=== PATIENT | female | born 1940 | race Hispanic/Latino ===

== ENCOUNTER → 2017-12-13 | Outpatient (CLI) | payer MEDICARE ==
[~2017-12-13] MED LIST: ASPI-555 PO; CLOP75TA14 PO; LISI-617 PO; METO50TA18 PO; NAPR-1023 PO; PRAV80TA21 PO
== END | disposition home or self-care (01) ==
LOC: SHCH 10:45
PROVIDERS: ATTEND Internal Medicine Cardiovascular Disease
DX: I73.9 Peripheral vascular disease, unspecified (principal); R09.89 Other specified symptoms and signs involving the circulatory and respiratory systems
CPT/HCPCS: 93880; 93925

== ENCOUNTER → 2017-12-23 | Outpatient (CLI) | payer MEDICARE ==
[2017-12-23 09:43] LABS: CREATININE 1.3 mg/dL (0.5-1.5)
== END | disposition home or self-care (01) ==
LOC: LAB 08:44
PROVIDERS: ATTEND Internal Medicine Cardiovascular Disease
DX: I73.9 Peripheral vascular disease, unspecified (principal)
CPT/HCPCS: 36415; 82565; 84520

== ENCOUNTER → 2017-12-24 | Outpatient (CLI) | payer MEDICARE ==
[~2017-12-24] MED LIST changes: +IOPAMIDOL-370 100 ML VIAL IV ONE; +IOPAMIDOL-370 75 ML VIAL IV ONE
== END | disposition home or self-care (01) ==
LOC: OIH 15:32
PROVIDERS: ATTEND Internal Medicine Cardiovascular Disease
DX: I73.9 Peripheral vascular disease, unspecified (principal); J18.1 Lobar pneumonia, unspecified organism
CPT/HCPCS: 75635; Q9967 ×2

== ENCOUNTER → 2019-05-10 | Outpatient (CLI) | payer OTHER, MEDICARE ==
[~2019-05-10] MED LIST changes: +AEC81 PO; -ASPI-555 PO; +FURO20TA4 PO; +IBUP-2070 PO; -IOPAMIDOL-370 100 ML VIAL IV ONE; -IOPAMIDOL-370 75 ML VIAL IV ONE; +ISOS30TA6 PO; +LEVO500T2 PO; -NAPR-1023 PO
== END | disposition home or self-care (01) ==
LOC: SHCH 08:23
PROVIDERS: ATTEND Internal Medicine Cardiovascular Disease
DX: I08.0 Rheumatic disorders of both mitral and aortic valves (principal); I11.9 Hypertensive heart disease without heart failure; I65.23 Occlusion and stenosis of bilateral carotid arteries
CPT/HCPCS: 93306; 93880

== ENCOUNTER 2019-06-12 07:25 | Inpatient (IN) | payer OTHER, MEDICARE ==
[~2019-06-12] VITALS: Ht 154.9 cm; Wt 55.2 kg
[2019-06-12] MEDS ORDERED: SODIUM CHLORIDE 0.9% 1000ML 1,000 ML IV ONE ×2 (07:57→15:11)
[2019-06-12 08:24] LABS: BASOPHILS % (AUTO) 0.5 % (0.0-5.0); EOSINOPHILS % (AUTO) 0.4 % (0.0-8.0); HEMATOCRIT 36.1 % (36-48); MEAN CORPUSCULAR HEMOGLOBIN 28.1 pg (27.0-33.0); MEAN CORPUSCULAR HGB CONC 31.6 g/dL (32.0-36.0); MEAN CORPUSCULAR VOLUME 88.7 fL (79-99); MONOCYTES % (AUTO) 7.5 % (3.0-13.0); NEUTROPHILS % (AUTO) 80.6 % (40.0-77.0); PLATELET COUNT (AUTO) 285 K/uL (130-400); RED BLOOD CELL COUNT(AUTO) 4.07 MIL/uL (4.00-5.50); RED CELL DISTRIBUTION WIDTH 13.6 % (11.0-15.5); WHITE BLOOD COUNT (AUTO) 15.5 K/uL (4.8-10.8)
[2019-06-12 08:33] LABS: CREATININE 1.6 mg/dL (0.5-1.5); POTASSIUM 3.9 mmol/L (3.5-5.1)
[2019-06-12 08:38] LABS: ALBUMIN 3.8 g/dL (3.5-5.0); BILIRUBIN,TOTAL 0.5 mg/dL (0.2-1.0); TOTAL PROTEIN, SERUM 8.1 g/dL (6.0-8.3)
[2019-06-12] MEDS ORDERED: METRONIDAZOLE 500MG/100ML BAG 100 ML ONE (09:35)
[2019-06-12] MEDS ORDERED: ACETAMINOPHEN 325 MG TAB ONE ×2 (10:03→18:26)
[2019-06-12] MEDS ORDERED: DIPHENHYDRAMINE HCL 25 MG CAPSULE PO PRN (10:45)
[2019-06-12] MEDS ORDERED: ACETAMINOPHEN 325 MG TAB PO PRN (10:45)
[2019-06-12] MEDS ORDERED: MAG HYDROX/AL HYDROX/SIMETH ES 30 ML SUSP UDCUP PO PRN (10:45)
[2019-06-12] MEDS ORDERED: LACTULOSE 20 GM/30 ML UDCUP PO PRN (10:45)
[2019-06-12] MEDS ORDERED: NITROGLYCERIN 0.4 MG SL TAB SL PRN (10:45)
[2019-06-12] MEDS ORDERED: DiphenhydrAMINE HCL 50 MG/ML VIAL IV PRN (10:45)
[2019-06-12] MEDS ORDERED: ONDANSETRON HCL 4 MG/2 ML VIAL IV PRN (10:45)
[2019-06-12] MEDS ORDERED: POTASSIUM CHLORIDE 20MEQ/100ML 100 ML IV PRN (11:15)
[2019-06-12] MEDS ORDERED: POTASSIUM CHLORIDE 20 MEQ ERTAB PO PRN (11:15)
[2019-06-12] MEDS ORDERED: LIDOCAINE HCL-MPF 1% 2ML VIAL IVP PRN (11:15)
[2019-06-12] MEDS ORDERED: POTASSIUM CHLORIDE 10% ELIXIR 20 MEQ/15 ML UDCUP PO PRN (11:15)
[2019-06-12 13:06] LABS: HEMATOCRIT 31.8 % (36-48)
[2019-06-12] MEDS ORDERED: IPRATROPIUM/ALBUTEROL SULFATE 3 ML SOLUTION IH ONE (13:37)
--- NOTE | 2019-06-12 13:38 | NUR ---
LESS THAN HALF PACK/DAY Addendum: 06/12/19 at 1338 by LUIS GARCIA RT Amended: Links added.
[2019-06-12] MEDS: IPRATROPIUM/ALBUTEROL SULFATE 3 ML SOLUTION IH SCH ×2 (13:41→18:00)
[2019-06-12] MEDS ORDERED: CEFTRIAXONE SODIUM 1 GM ONE (18:16)
[2019-06-12 19:00] LABS: ALBUMIN 3.1 g/dL (3.5-5.0); BILIRUBIN,TOTAL 0.3 mg/dL (0.2-1.0); CREATININE 1.2 mg/dL (0.5-1.5); TOTAL PROTEIN, SERUM 7.2 g/dL (6.0-8.3)
[2019-06-12] MEDS: FAMOTIDINE/PF 20 MG/2 ML VIAL IV SCH (20:52)
[2019-06-12 21:00] VITALS: BP 113/58
--- NOTE | 2019-06-12 21:00 | NUR ---
Admitted from ER at 2036. Awake, alert, and oriented x 3. On room air. NS infusing at 100 mls/hr into patent right forearm IV. Oriented to room, bed controls, call light etc. Assisted to position of comfort. Call light and needed items placed readily at hand. Encouraged to call prn. Placed on Droplet Precautions due to cough.
[2019-06-12] MEDS: SODIUM CHLORIDE 0.9% 1000ML 1,000 ML IV SCH (21:20)
[2019-06-12] MEDS ORDERED: IPRATROPIUM 0.5 MG/2.5 ML INH IH ONE (22:06)
[2019-06-12] MEDS ORDERED: ACET-66 PO (22:29)
[2019-06-12] MEDS: CEFTRIAXONE SODIUM 1 GM IVP SCH ×2 (22:57→23:00)
--- NOTE | 2019-06-12 23:00 | NUR ---
Call placed to Hospitalist recreation attendant supervisor. Patient feels Duonebs make her heart race. Requested change to atrovent only. Spoke to Aleisha FUNES(hospitalist recreation attendant supervisor). Order received.
[2019-06-13] VITALS (8 sets, daily range): BP systolic 95–150; BP diastolic 48–73
[2019-06-13] MEDS: IPRATROPIUM 0.5 MG/2.5 ML INH IH SCH ×6 (01:43→21:49)
[2019-06-13 03:48] LABS: BASOPHILS % (AUTO) 0.6 % (0.0-5.0); EOSINOPHILS % (AUTO) 2.4 % (0.0-8.0); HEMATOCRIT 30.9 % (36-48); LYMPHOCYTES % (AUTO) 13.4 % (21.0-51.0); MEAN CORPUSCULAR HEMOGLOBIN 28.7 pg (27.0-33.0); MEAN CORPUSCULAR HGB CONC 32.5 g/dL (32.0-36.0); MEAN CORPUSCULAR VOLUME 88.6 fL (79-99); MONOCYTES % (AUTO) 10.7 % (3.0-13.0); NEUTROPHILS % (AUTO) 72.9 % (40.0-77.0); PLATELET COUNT (AUTO) 228 K/uL (130-400); RED BLOOD CELL COUNT(AUTO) 3.49 MIL/uL (4.00-5.50); RED CELL DISTRIBUTION WIDTH 13.8 % (11.0-15.5); WHITE BLOOD COUNT (AUTO) 10.3 K/uL (4.8-10.8)
[2019-06-13 04:01] LABS: ALBUMIN 2.8 g/dL (3.5-5.0); BILIRUBIN,TOTAL 0.2 mg/dL (0.2-1.0); POTASSIUM 3.9 mmol/L (3.5-5.1); TOTAL PROTEIN, SERUM 6.3 g/dL (6.0-8.3)
[2019-06-13] MEDS ORDERED: AZITHROMYCIN 250 MG TABLET PO SCH (08:00)
--- NOTE | 2019-06-13 08:15 | NUR ---
AM ASSESSMENT PT LAYING IN BED, WATCHING TV. DROPLET ISOLATIONS. SOB ON EXERTION. NO DISTRESS NOTED. O2 NC @ 2L. DENIES CHEST PAIN OR DISCOMFORT. DENIES PALPITATIONS. TELE: 80s. DENIES N/V AND/OR DIARRHEA. NO EPISODES OF DIARRHEA SINCE ADMISSION. 0.9% NACL INFUSING @ 75 ML/HR. UP W/ASSISTANCE. WALKER @ BEDSIDE. INSTRUCTED TO CALL FOR ASSISTANCE. CALL TORIN W/IN REACH.
[2019-06-13] MEDS ORDERED: ENOXAPARIN SODIUM 30 MG/0.3 ML SQ SCH (09:00)
[2019-06-13] MEDS: AZITHROMYCIN 250 MG TABLET PO SCH (09:06)
[2019-06-13] MEDS: BENZONATATE 100 MG CAPSULE PO PRN ×2 (09:06→20:48)
[2019-06-13] MEDS: CEFTRIAXONE SODIUM 1 GM IVP SCH ×2 (09:07→20:48)
[2019-06-13] MEDS: GUAIFENESIN-DM 200/20 MG 10 ML PO PRN ×2 (09:07→20:48)
[2019-06-13] MEDS: SODIUM CHLORIDE 0.9% 1000ML 1,000 ML IV SCH ×2 (09:12→19:33)
--- NOTE | 2019-06-13 16:38 | NUR ---
DC PLAN VISITED WITH PATIENT. PATIENT LIVES WITH SON. SEMI INDEPENDENT ABLE TO PERFORM ADL'S. PATIENT HAS WALKER, WHEEL CHAIR, SHOWER CHAIR. NACHO IS THE PROVIDER. FEELS SAFE TO RETURN HOME. Addendum: 06/13/19 at 1640 by ADRYAN MCCORMICK RN CM Amended: Links added.
[2019-06-13] MEDS: ACETYLCYSTEINE 10% 100MG/ML 4ML VIAL IH SCH ×2 (18:11→21:49)
[2019-06-13] MEDS: FAMOTIDINE/PF 20 MG/2 ML VIAL IV SCH (20:48)
--- NOTE | 2019-06-13 21:00 | NUR ---
Awake, alert, and oriented. Strong cough sounds productive, but not bringing up phlegm. Medicated with Robitussin DM and Tessalon perle. Comfort measures done. Droplet precautions Isolation in progress. Call light and needed items placed readily at hand. Encouraged to call prn.
[2019-06-14] MEDS: IPRATROPIUM 0.5 MG/2.5 ML INH IH SCH ×6 (01:28→22:30)
[2019-06-14] MEDS: ACETYLCYSTEINE 10% 100MG/ML 4ML VIAL IH SCH ×6 (01:28→22:30)
[2019-06-14] MEDS: SODIUM CHLORIDE 0.9% 1000ML 1,000 ML IV SCH (03:15)
[2019-06-14 03:33] VITALS: BP 141/63
[2019-06-14 04:17] LABS: HEMATOCRIT 29.3 % (36-48); MEAN CORPUSCULAR HEMOGLOBIN 28.8 pg (27.0-33.0); MEAN CORPUSCULAR HGB CONC 32.2 g/dL (32.0-36.0); MEAN CORPUSCULAR VOLUME 89.4 fL (79-99); PLATELET COUNT (AUTO) 227 K/uL (130-400); RED BLOOD CELL COUNT(AUTO) 3.28 MIL/uL (4.00-5.50); WHITE BLOOD COUNT (AUTO) 8.9 K/uL (4.8-10.8)
[2019-06-14 04:26] LABS: INR 1.05 (0.85-1.15); PARTIAL THROMBOPLASTIN TIME 32.2 SEC (26.3-35.5)
[2019-06-14 04:29] LABS: ALBUMIN 2.5 g/dL (3.5-5.0); BILIRUBIN,TOTAL 0.2 mg/dL (0.2-1.0); CREATININE 0.8 mg/dL (0.5-1.5)
[2019-06-14 07:00] VITALS: BP 148/65
[2019-06-14] MEDS: AZITHROMYCIN 250 MG TABLET PO SCH (09:56)
[2019-06-14] MEDS: METHYLPREDNISOLONE SOD SUCC 40MG/ML 1ML IVP SCH ×2 (09:56→18:04)
[2019-06-14] MEDS: CEFTRIAXONE SODIUM 1 GM IVP SCH ×2 (09:56→20:02)
[2019-06-14] MEDS: ACETAMINOPHEN 325 MG TAB PO PRN ×2 (09:57→23:36)
[2019-06-14 11:00] VITALS: BP 139/59
--- NOTE | 2019-06-14 14:02 | NUR ---
RD Note RD Notified by FNS Director for Pt requesting salt with Low Sodium Diet Order restriction. Upon visit, Pt demonstrates full awareness of Sodium restriction by MD. Pt refuses to eat food without salt. Pt eating fruit at time of visit. RD encouraged Pt to taste food as it smells flavorful. Pt tastes food and states that food is good. RD Rec to encourage Pt to taste food before requesting additional salt. Pt admitted for dehydration. Sodium levels within high normal range. Please notify RD as additional concerns arise. Thank you.
[2019-06-14 16:00] VITALS: BP 148/75
[2019-06-14 19:08] VITALS: BP 142/74
[2019-06-14] MEDS: FAMOTIDINE/PF 20 MG/2 ML VIAL IV SCH (20:02)
[2019-06-14] MEDS: HYDRALAZINE HCL 20 MG/ML VIAL IV PRN (22:51)
--- NOTE | 2019-06-14 23:30 | NUR ---
PT STARTED TO EXPERIENCE SOB, CHEST PAIN TO LEFT SIDE, AND LEFT ARM WEAKNESS. ABLE TO LIFT ARM. STATES HEADACHE, WEAKNESS, AND FEELS JITTERY. PT WAS PLACED ON NASAL CANNULA 4LPM. NITROGLYCERIN AND TYLENOL GIVEN PRN. HOSPITAL COMMERCIAL CREDIT PORTFOLIO MANAGER Lorenzo ROD NAPHTHALENE OPERATOR ORDERED EKG SERIES Q8 X3. CARDIAL PANEL Q8X3. XANAX 0.5MG X1 DOSE.
[2019-06-14 23:49] VITALS: BP 152/71
--- NOTE | 2019-06-15 | NUR ---
CARDIAC PANEL WAS NEGATIVE. ABNORMAL EKG READY TO GEORGINA FUNES. NEW ORDER FOR MULTI SITE LEASING CONSULTANT CONSULT. PT PRIMARY MULTI SITE LEASING CONSULTANT IS DR. CHELE RUTHERFORD.
[2019-06-15] MEDS ORDERED: ALPRAZOLAM 0.5 MG TABLET PO ONE (00:15)
[2019-06-15] MEDS ORDERED: ALPRAZOLAM 0.5 MG TABLET ONE (00:19)
[2019-06-15 00:25] LABS: CREATINE KINASE, TOTAL 127 U/L (21-232); MYOGLOBIN 82 ng/mL (10-92); TROPONIN I < 0.04 ng/mL (0.00-0.06)
--- NOTE | 2019-06-15 00:45 | NUR ---
PT AT THIS TIME IS STABLE, BP SLIGHTLY ELEVATED. PULSE TRENDED DOWN FROM 100'S TO 90'S. OXYGEN LEVEL INCREASING TO 96% WITH NASAL CANNULA. FAMILY AT BEDSIDE. PT STATES SHE FEELS MUCH BETTER. NO MORE NITRO GLYCERIN BECAUSE IT CAUSED SEVERE ANXIETY AFTER FIRST DOSE. PT BLOOD PRESSURE TENDS TO FLUCTUATE STATED PER FAMILY. MUST BE CAREFUL WITH BP MEDICATIONS. PT DOES HAVE HISTORY OF ANXIETY
[2019-06-15] MEDS: ACETYLCYSTEINE 10% 100MG/ML 4ML VIAL IH SCH ×4 (01:14→13:41)
[2019-06-15] MEDS: IPRATROPIUM 0.5 MG/2.5 ML INH IH SCH ×4 (01:14→13:41)
[2019-06-15] MEDS: METHYLPREDNISOLONE SOD SUCC 40MG/ML 1ML IVP SCH ×3 (01:36→17:50)
[2019-06-15 04:04] VITALS: BP 149/80
[2019-06-15 04:59] LABS: BASOPHILS % (AUTO) 0.1 % (0.0-5.0); HEMATOCRIT 30.7 % (36-48); LYMPHOCYTES % (AUTO) 14.5 % (21.0-51.0); MEAN CORPUSCULAR HEMOGLOBIN 28.9 pg (27.0-33.0); MEAN CORPUSCULAR HGB CONC 33.2 g/dL (32.0-36.0); MEAN CORPUSCULAR VOLUME 87.2 fL (79-99); MONOCYTES % (AUTO) 2.9 % (3.0-13.0); NEUTROPHILS % (AUTO) 82.5 % (40.0-77.0); PLATELET COUNT (AUTO) 263 K/uL (130-400); RED BLOOD CELL COUNT(AUTO) 3.52 MIL/uL (4.00-5.50); RED CELL DISTRIBUTION WIDTH 13.9 % (11.0-15.5); WHITE BLOOD COUNT (AUTO) 7.5 K/uL (4.8-10.8)
[2019-06-15 05:13] LABS: ALBUMIN 2.8 g/dL (3.5-5.0); BILIRUBIN,TOTAL 0.2 mg/dL (0.2-1.0); CREATININE 0.9 mg/dL (0.5-1.5); POTASSIUM 3.5 mmol/L (3.5-5.1); TOTAL PROTEIN, SERUM 6.8 g/dL (6.0-8.3)
[2019-06-15 05:28] LABS: B-TYPE NATRIURETIC PEPTIDE 844 pg/mL (0-100)
[2019-06-15 08:00] VITALS: BP 158/88
[2019-06-15 08:57] LABS: CREATINE KINASE, TOTAL 105 U/L (21-232); MYOGLOBIN 76 ng/mL (10-92); TROPONIN I < 0.04 ng/mL (0.00-0.06)
[2019-06-15] MEDS: CEFTRIAXONE SODIUM 1 GM IVP SCH ×2 (09:56→20:11)
[2019-06-15] MEDS: AZITHROMYCIN 250 MG TABLET PO SCH (09:57)
[2019-06-15] MEDS: ENOXAPARIN SODIUM 30 MG/0.3 ML SQ SCH (09:58)
--- NOTE | 2019-06-15 11:27 | NUR ---
DYSPHAGIA EVAL COMPLETED. -S/S OF ASPIRATION. RECOMMEND MECHANICAL SOFT/CHOPPED, THIN LIQUIDS; PILLS WHOLE WITH LIQUIDS. Addendum: 06/15/19 at 1129 by SHANNON ASHER, [facility] Amended: Links added.
[2019-06-15 12:17] VITALS: BP 131/73
[2019-06-15 16:00] VITALS: BP 117/73
[2019-06-15 16:39] LABS: CREATINE KINASE, TOTAL 94 U/L (21-232); MYOGLOBIN 96 ng/mL (10-92); TROPONIN I < 0.04 ng/mL (0.00-0.06)
[2019-06-15] MEDS: SODIUM CHLORIDE 3% FOR INHALATION 4 ML/AMP VIAL.NEB IH SCH ×2 (18:24→23:42)
[2019-06-15 19:10] VITALS: BP 152/66
[2019-06-15] MEDS: FAMOTIDINE/PF 20 MG/2 ML VIAL IV SCH (20:11)
[2019-06-15 23:22] VITALS: BP 145/76
[2019-06-16] MEDS: METHYLPREDNISOLONE SOD SUCC 40MG/ML 1ML IVP SCH ×2 (01:40→10:18)
[2019-06-16 03:09] VITALS: BP 148/85
--- NOTE | 2019-06-16 05:10 | NUR ---
PT HAS BEEN STABLE THROUGHOUT THE NIGHT. NO EPISODES OF CHEST PAIN, SOB, OR WEAKNESS. PT CONTINUES ON SOLUMEDROL. HAS IMPROVED IN RESPIRATORY STATUS. ABLE TO AMBULATE WITH ASSIST OF WALKER. IV FLUIDS ON HOLD DUE TO INCREASED BNP.
[2019-06-16] MEDS: SODIUM CHLORIDE 3% FOR INHALATION 4 ML/AMP VIAL.NEB IH SCH (06:25)
--- NOTE | 2019-06-16 06:35 | NUR ---
POTASSIUM PRN GIVEN DUE TO 3.5 LEVEL.
[2019-06-16 07:17] VITALS: BP 186/76
--- NOTE | 2019-06-16 08:00 | NUR ---
ASSESSMENT ENCOUNTERED PT A&OX3, CALM COOPERATIVE AND DOES NOT APPEAR TO BE IN ANY DISTRESS NOR ANY NEURO DEFICITS PRESENT. PT IS AMBULATORY, GAIT SLOW BUT STEADY WITH WALKER AND STAND BY ASSIST, DENIES PAIN, NAUSEA BUT DOES C/O COUGH AND DYSPNEA ON EXERTION THAT RESOLVES UPON SITTING IN CHAIR OR LAYING IN BED. PT IS ABLE TO TOLERATE FOODS FLUIDS AND MEDICATION WITH NO THROAT CLEARING OR COUGH. CALL LIGHT WITHIN REACH, FAMILY AT BEDSIDE.
[2019-06-16] MEDS ORDERED: NEBU1KIT3 MC (08:20)
[2019-06-16] MEDS ORDERED: METO25TA6 PO (08:20)
[2019-06-16] MEDS ORDERED: ACET1030H NEB (08:20)
[2019-06-16] MEDS ORDERED: LEVO500T2 PO (08:20)
[2019-06-16] MEDS ORDERED: PRED20TA3 PO (08:20)
[2019-06-16 09:50] VITALS: BP 178/84
--- NOTE | 2019-06-16 10:00 | NUR ---
cm note spoke to pt regarding snf level of care order, pt states does not wish to go to snf. prefers home. updated dr clarke, and dr clarke spoke to pt and daughter in law margie, and updated that ok to go home just recommends that pt continues her meds as ordered. pt/daughter in law verbalize understanding.
[2019-06-16] MEDS: ENOXAPARIN SODIUM 30 MG/0.3 ML SQ SCH (10:18)
[2019-06-16] MEDS: AZITHROMYCIN 250 MG TABLET PO SCH (10:18)
[2019-06-16] MEDS: CEFTRIAXONE SODIUM 1 GM IVP SCH (10:18)
[2019-06-16] MEDS: HYDRALAZINE HCL 20 MG/ML VIAL IV PRN (10:19)
[2019-06-16 11:40] VITALS: BP 157/66
--- NOTE | 2019-06-16 12:00 | NUR ---
cm note\ spoke to pt and to son, and informed of order for nebulizer, son states he will take pt home and then wait for delivery of nebulizer, states he has an extra nebulizer that pt can use in the meantime. choice letter signed and referral faxed to [facility] network provider. provided son with phone number for DME for any followup questions.verbalizes understanding that nebulizer has not been approved yet.
--- NOTE | 2019-06-16 14:00 | NUR ---
DISCHARGE INSTRUCTIONS GIVEN, PIV REMOVED AND INTACT, DISCHARGED HOME TO FAMILY VEHICLE VIA WHEELCHAIR.
--- NOTE | 2019-06-16 17:04 | NUR ---
cm note spoke to daniel at [facility] dme [phone] , and states that pt nebulizer has been approved and will be delivered to home today.
== END 2019-06-16 12:30 | disposition home or self-care (01) | DRG 871 ==
LOC: EDH 07:25 → EDHIP 10:43 → 2DH 19:47
PROVIDERS: ADMIT Family Medicine; ATTEND Family Medicine
DX: A41.9 Sepsis, unspecified organism (principal); J14 Pneumonia due to Hemophilus influenzae; J44.0 Chronic obstructive pulmonary disease with (acute) lower respiratory infection; N17.9 Acute kidney failure, unspecified; J44.1 Chronic obstructive pulmonary disease with (acute) exacerbation; K52.9 Noninfective gastroenteritis and colitis, unspecified; E86.0 Dehydration; D64.9 Anemia, unspecified; E78.00 Pure hypercholesterolemia, unspecified; E78.5 Hyperlipidemia, unspecified; F03.90 Unspecified dementia, unspecified severity, without behavioral disturbance, psychotic disturbance, mood disturbance, and anxiety; I25.10 Atherosclerotic heart disease of native coronary artery without angina pectoris; T17.990A Other foreign object in respiratory tract, part unspecified in causing asphyxiation, initial encounter; X58.XXXA Exposure to other specified factors, initial encounter; Y93.89 Activity, other specified; Y92.89 Other specified places as the place of occurrence of the external cause; Y99.8 Other external cause status; Z82.49 Family history of ischemic heart disease and other diseases of the circulatory system; Z87.891 Personal history of nicotine dependence; Z90.710 Acquired absence of both cervix and uterus; Z95.1 Presence of aortocoronary bypass graft; Z88.5 Allergy status to narcotic agent; Z91.041 Radiographic dye allergy status
CPT/HCPCS: 36415; 71250; 74176; 80053; 82550; 82948; 83605; 83690; 83874; 83880; 84145; 84484; 85014; 85018; 85025; 85027; 85384; 85610; 85730; 87071; 87077; 87186; 87205; 87486; 87581; 87633; 87798; 92610; 93005; 94640; 94664; 94760; 97039; 99291; A4606; G0378; J0360; J0696; J1650; J2920; J3490; J7030; J7608

== ENCOUNTER → 2021-04-16 | Outpatient (CLI) | payer OTHER, MEDICARE ==
[~2021-04-16] MED LIST changes: +ACET-66 PO; -CLOP75TA14 PO; +DICY10CA13 PO; -FURO20TA4 PO; +GABA-529 PO; -IBUP-2070 PO; -ISOS30TA6 PO; +ISOS30TA92 PO; -LEVO500T2 PO; -LISI-617 PO; -METO50TA18 PO; +OMEP-272 PO
== END | disposition home or self-care (01) ==
LOC: SHCH 09:28
PROVIDERS: ATTEND Internal Medicine Cardiovascular Disease
DX: I65.23 Occlusion and stenosis of bilateral carotid arteries (principal)
CPT/HCPCS: 93880

== ENCOUNTER → 2021-07-18 | Outpatient (CLI) | payer OTHER, MEDICARE ==
[~2021-07-18] VITALS: Ht 154.9 cm; Wt 54.9 kg
[~2021-07-18] MED LIST changes: +REGADENOSON 0.4 MG/5 ML PF SYG IVP SCH
== END | disposition home or self-care (01) ==
LOC: SHCH 07:37
PROVIDERS: ATTEND Internal Medicine Cardiovascular Disease
DX: I25.10 Atherosclerotic heart disease of native coronary artery without angina pectoris (principal); I10 Essential (primary) hypertension; E78.5 Hyperlipidemia, unspecified; Z95.5 Presence of coronary angioplasty implant and graft
CPT/HCPCS: 78452; 93017; 96374; A9500 ×2; J2785

== ENCOUNTER 2022-03-19 04:55 | Emergency (ER) | payer OTHER, MEDICARE ==
[~2022-03-19] VITALS: Ht 154.9 cm; Wt 64.0 kg
[~2022-03-19 04:55] MED LIST changes: -DICY10CA13 PO; +FURO20TA4 PO; -GABA-529 PO; +METO25TA6 PO; +PREG50CA63 PO; -REGADENOSON 0.4 MG/5 ML PF SYG IVP SCH
[2022-03-19 05:41] LABS: BASOPHILS % (AUTO) 0.8 % (0.0-5.0); EOSINOPHILS % (AUTO) 1.5 % (0.0-8.0); HEMATOCRIT 42.3 % (36-48); LYMPHOCYTES % (AUTO) 21.2 % (21.0-51.0); MEAN CORPUSCULAR HEMOGLOBIN 30.6 pg (27.0-33.0); MEAN CORPUSCULAR HGB CONC 31.2 g/dL (32.0-36.0); MEAN CORPUSCULAR VOLUME 98.1 fL (79-99); MONOCYTES % (AUTO) 8.2 % (3.0-13.0); NEUTROPHILS % (AUTO) 67.6 % (40.0-77.0); PLATELET COUNT (AUTO) 185 K/uL (130-400); RED BLOOD CELL COUNT(AUTO) 4.31 MIL/uL (4.00-5.50); RED CELL DISTRIBUTION WIDTH 14.8 % (11.0-15.5)
[2022-03-19 05:45] LABS: APPEARANCE,URINE Clear (CLEAR); BILIRUBIN,URINE Negative (NEGATIVE); COLOR,URINE Yellow (YELLOW); GLUCOSE, URINE (UA) Negative (NEGATIVE); KETONES,URINE Trace mg/dL (NEGATIVE); LEUKOCYTE ESTERASE ,URINE Negative (NEGATIVE); NITRATE,URINE Negative (NEGATIVE); OCCULT BLOOD,URINE Negative (NEGATIVE); PROTEIN,URINE POS 1+ mg/dL (NEGATIVE); UROBILINOGEN,URINE 0.2 mg/dL (0.2-1.0)
[2022-03-19 05:50] LABS: ALBUMIN 4.1 g/dL (3.5-5.0); BILIRUBIN,TOTAL 0.5 mg/dL (0.2-1.0); CREATININE 0.9 mg/dL (0.5-1.5); MAGNESIUM 1.8 mg/dL (1.80-2.40); TOTAL PROTEIN, SERUM 7.8 g/dL (6.0-8.3)
[2022-03-19 05:53] LABS: BACTERIA,URINE Rare /HPF (None Seen); RBC,URINE 0-1 /HPF (0-1)
[2022-03-19 06:01] LABS: B-TYPE NATRIURETIC PEPTIDE 838 pg/mL (0-100)
[2022-03-19] MEDS ORDERED: ACETAMINOPHEN 500 MG TABLET PO ONE (06:30)
[2022-03-19] MEDS ORDERED: CEFTRIAXONE 1G VIAL IVP ONE (06:30)
[2022-03-19] MEDS ORDERED: FUROSEMIDE 40MG VIAL IV ONE (06:30)
[2022-03-19] MEDS ORDERED: FUROSEMIDE 20MG VIAL IV ONE (08:00)
[2022-03-19] MEDS ORDERED: KETOROLAC 30MG VIAL (30MG/ML) IVP ONE (09:00)
[2022-03-19] MEDS ORDERED: CEPH500B PO (09:49)
[2022-03-19 10:33] VITALS: BP 111/45
== END 2022-03-19 10:42 | disposition home or self-care (01) ==
LOC: EDH 04:55
DX: I11.0 Hypertensive heart disease with heart failure (principal); I50.9 Heart failure, unspecified; R30.0 Dysuria; E11.9 Type 2 diabetes mellitus without complications; E78.00 Pure hypercholesterolemia, unspecified; Z88.8 Allergy status to other drugs, medicaments and biological substances; Z88.5 Allergy status to narcotic agent; Z79.82 Long term (current) use of aspirin; Z79.899 Other long term (current) drug therapy; Z95.1 Presence of aortocoronary bypass graft
CPT/HCPCS: 36415; 70450; 71045; 74176; 80053; 81001; 83735; 83880; 84484; 85025; 85378; 87088; 93005; 96374; 96375; 99285; J0696; J1885; J1940

== ENCOUNTER 2022-04-04 06:27 | Emergency (ER) | payer OTHER, MEDICARE ==
[~2022-04-04] VITALS: Ht 149.9 cm; Wt 62.6 kg
[~2022-04-04 06:27] MED LIST changes: +CEPH500B PO
[2022-04-04] MEDS ORDERED: ONDANSETRON 4MG INJ IVP ONE (08:00)
[2022-04-04] MEDS ORDERED: MORPHINE 2 MG SYG IVP ONE (08:00)
[2022-04-04] MEDS ORDERED: KETOROLAC 15MG/ML VIAL (15MG/ML) IV ONE (08:00)
[2022-04-04] MEDS ORDERED: NAPR-1196 PO (08:30)
[2022-04-04] MEDS ORDERED: TRAM1TAB2 PO (08:30)
[2022-04-04 08:52] VITALS: BP 134/72
== END 2022-04-04 09:13 | disposition home or self-care (01) ==
LOC: EDH 06:27
DX: M54.16 Radiculopathy, lumbar region (principal); M41.9 Scoliosis, unspecified; E11.9 Type 2 diabetes mellitus without complications; I10 Essential (primary) hypertension; K21.9 Gastro-esophageal reflux disease without esophagitis; Z88.5 Allergy status to narcotic agent; Z88.8 Allergy status to other drugs, medicaments and biological substances; Z79.1 Long term (current) use of non-steroidal anti-inflammatories (NSAID); Z79.82 Long term (current) use of aspirin; Z79.899 Other long term (current) drug therapy; Z95.1 Presence of aortocoronary bypass graft
CPT/HCPCS: 72131; 96374; 96375; 99284; J1885; J2405

== ENCOUNTER 2022-06-07 16:38 | Inpatient (IN) | payer OTHER, MEDICARE ==
[~2022-06-07] VITALS: Ht 154.9 cm; Wt 60.8 kg
[~2022-06-07 16:38] MED LIST changes: +NAPR-1196 PO; +TRAM1TAB2 PO
[2022-06-07 17:23] LABS: BASOPHILS % (AUTO) 0.5 % (0.0-5.0); EOSINOPHILS % (AUTO) 1.7 % (0.0-8.0); HEMATOCRIT 38.5 % (36-48); LYMPHOCYTES % (AUTO) 22.8 % (21.0-51.0); MEAN CORPUSCULAR HGB CONC 31.4 g/dL (32.0-36.0); MEAN CORPUSCULAR VOLUME 98.7 fL (79-99); MONOCYTES % (AUTO) 9.2 % (3.0-13.0); NEUTROPHILS % (AUTO) 65.4 % (40.0-77.0); PLATELET COUNT (AUTO) 176 K/uL (130-400); RED CELL DISTRIBUTION WIDTH 13.5 % (11.0-15.5); WHITE BLOOD COUNT (AUTO) 7.5 K/uL (4.8-10.8)
[2022-06-07] MEDS ORDERED: NITROGLYCERIN 1GM OINT 1 INCH/1GM TD ONE ×2 (17:42→18:00)
[2022-06-07] MEDS ORDERED: OCTYL 2-CYANOACRYLATE 1 EACH TP ONE (18:24)
[2022-06-07] MEDS ORDERED: SUCRALFATE 1 GM TABLET PO SCH (18:30)
[2022-06-07] MEDS ORDERED: TETANUS/DIPHTHERIA TOXOID [ADULT] 0.5 ML VIAL IM ONE (18:30)
[2022-06-07] MEDS ORDERED: FAMOTIDINE 20MG VIAL IV ONE (18:30)
[2022-06-07] MEDS ORDERED: MORPHINE 2 MG SYG IVP PRN (19:00)
[2022-06-07] MEDS ORDERED: ONDANSETRON 4MG INJ IVP PRN (19:00)
[2022-06-07 20:21] LABS: CREATININE 0.9 mg/dL (0.5-1.5); POTASSIUM 4.2 mmol/L (3.5-5.1)
[2022-06-07 20:25] LABS: ALBUMIN 3.6 g/dL (3.5-5.0); TOTAL PROTEIN, SERUM 7.3 g/dL (6.0-8.3)
[2022-06-07 21:13] LABS: APPEARANCE,URINE CLEAR (CLEAR); BILIRUBIN,URINE SMALL (NEGATIVE); COLOR,URINE YELLOW (YELLOW); GLUCOSE, URINE (UA) NEGATIVE (NEGATIVE); KETONES,URINE 5 mg/dL (NEGATIVE); LEUKOCYTE ESTERASE ,URINE TRACE (NEGATIVE); NITRATE,URINE NEGATIVE (NEGATIVE); OCCULT BLOOD,URINE NEGATIVE (NEGATIVE); PH,URINE 5.5 (5.0-8.0); PROTEIN,URINE TRACE mg/dL (NEGATIVE); UROBILINOGEN,URINE 0.2 mg/dL (0.2-1.0)
[2022-06-07 21:19] LABS: BACTERIA,URINE Few /HPF (None Seen); RBC,URINE 0-1 /HPF (0-1); SQUAMOUS EPITHELIAL CELL,UR Few /HPF (0-2); WBC,URINE 0-1 /HPF (0-1)
[2022-06-07] MEDS: METOPROLOL TARTRATE 25 MG TAB PO SCH (21:23)
[2022-06-07 22:08] VITALS: BP 145/78
[2022-06-07] MEDS ORDERED: PREG100C55 PO (22:52)
[2022-06-07] MEDS ORDERED: ACET-2743 PO (22:52)
[2022-06-07] MEDS ORDERED: ROSU20TA31 PO (22:52)
[2022-06-07 23:07] VITALS: BP 143/74
[2022-06-08 03:22] VITALS: BP 138/61
[2022-06-08 03:46] LABS: BASOPHILS % (AUTO) 0.5 % (0.0-5.0); EOSINOPHILS % (AUTO) 1.8 % (0.0-8.0); HEMATOCRIT 35.5 % (36-48); LYMPHOCYTES % (AUTO) 21.8 % (21.0-51.0); MEAN CORPUSCULAR HEMOGLOBIN 31.8 pg (27.0-33.0); MEAN CORPUSCULAR HGB CONC 31.3 g/dL (32.0-36.0); MEAN CORPUSCULAR VOLUME 101.7 fL (79-99); MONOCYTES % (AUTO) 9.4 % (3.0-13.0); PLATELET COUNT (AUTO) 163 K/uL (130-400); RED BLOOD CELL COUNT(AUTO) 3.49 MIL/uL (4.00-5.50); RED CELL DISTRIBUTION WIDTH 13.5 % (11.0-15.5); WHITE BLOOD COUNT (AUTO) 8.3 K/uL (4.8-10.8)
[2022-06-08 04:06] LABS: CREATININE 0.9 mg/dL (0.5-1.5); POTASSIUM 4.2 mmol/L (3.5-5.1)
[2022-06-08] MEDS: ACETAMINOPHEN 325 MG TAB PO PRN ×2 (06:40→15:24)
[2022-06-08 07:00] VITALS: BP 146/74
[2022-06-08] MEDS ORDERED: FUROSEMIDE 20MG VIAL IV ONE (08:30)
[2022-06-08] MEDS: ENOXAPARIN SODIUM 40 MG/0.4 ML SYRINGE SQ SCH (08:37)
[2022-06-08] MEDS: ASPIRIN 81 MG EC TAB PO SCH (08:37)
[2022-06-08] MEDS: METOPROLOL TARTRATE 25 MG TAB PO SCH (08:37)
[2022-06-08] MEDS: ISOSORBIDE MONO 30MG SR TAB PO SCH (10:07)
[2022-06-08 11:00] VITALS: BP 127/64
[2022-06-08 15:00] VITALS: BP 130/52
[2022-06-08] MEDS: FUROSEMIDE 20MG VIAL IV SCH (16:35)
[2022-06-08 20:00] VITALS: BP 127/58
[2022-06-08] MEDS: ATORVASTATIN 40 MG TABLET PO SCH (20:49)
[2022-06-08] MEDS: PREGABALIN 100 MG CAPSULE PO SCH (21:03)
[2022-06-09] VITALS (7 sets, daily range): BP systolic 73–139; BP diastolic 37–74
[2022-06-09 04:40] LABS: MEAN CORPUSCULAR HEMOGLOBIN 31.4 pg (27.0-33.0); MEAN CORPUSCULAR HGB CONC 32.2 g/dL (32.0-36.0); MEAN CORPUSCULAR VOLUME 97.6 fL (79-99); RED BLOOD CELL COUNT(AUTO) 3.79 MIL/uL (4.00-5.50); RED CELL DISTRIBUTION WIDTH 13.5 % (11.0-15.5); WHITE BLOOD COUNT (AUTO) 7.3 K/uL (4.8-10.8)
[2022-06-09 04:59] LABS: CREATININE 1.1 mg/dL (0.5-1.5); MAGNESIUM 1.6 mg/dL (1.80-2.40); POTASSIUM 3.8 mmol/L (3.5-5.1)
[2022-06-09] MEDS: FUROSEMIDE 20MG VIAL IV SCH ×2 (05:43→17:00)
[2022-06-09] MEDS: ISOSORBIDE MONO 30MG SR TAB PO SCH (08:43)
[2022-06-09] MEDS: ASPIRIN 81 MG EC TAB PO SCH (08:43)
[2022-06-09] MEDS: RANOLAZINE 500 MG TAB.SR.12H PO SCH ×2 (08:43→20:25)
[2022-06-09] MEDS: ENOXAPARIN SODIUM 40 MG/0.4 ML SYRINGE SQ SCH (08:45)
[2022-06-09] MEDS: PREGABALIN 100 MG CAPSULE PO SCH ×2 (08:48→20:26)
[2022-06-09] MEDS: ATORVASTATIN 40 MG TABLET PO SCH (20:25)
[2022-06-09] MEDS ORDERED: METOPROLOL TARTRATE 25 MG TAB PO SCH (21:00)
[2022-06-10] VITALS: BP 87/52
[2022-06-10 03:00] VITALS: BP 91/58
[2022-06-10] MEDS: FUROSEMIDE 20MG VIAL IV SCH (04:29)
[2022-06-10 08:00] VITALS: BP 153/86
[2022-06-10] MEDS: ISOSORBIDE MONO 30MG SR TAB PO SCH (09:26)
[2022-06-10] MEDS: ENOXAPARIN SODIUM 40 MG/0.4 ML SYRINGE SQ SCH (09:26)
[2022-06-10] MEDS: ACETAMINOPHEN 325 MG TAB PO PRN (09:27)
[2022-06-10] MEDS: ASPIRIN 81 MG EC TAB PO SCH (09:28)
[2022-06-10] MEDS: RANOLAZINE 500 MG TAB.SR.12H PO SCH (09:28)
[2022-06-10] MEDS: PREGABALIN 100 MG CAPSULE PO SCH (09:31)
[2022-06-10 12:00] VITALS: BP 78/53
[2022-06-10] MEDS ORDERED: RANO500T2 PO (15:49)
== END 2022-06-10 17:20 | disposition home or self-care (01) | DRG 291 ==
LOC: EDH 16:38 → EDHIP 18:43 → 2AH 21:56
PROVIDERS: ADMIT Internal Medicine Infectious Disease; ATTEND Internal Medicine Infectious Disease
DX: I13.0 Hypertensive heart and chronic kidney disease with heart failure and stage 1 through stage 4 chronic kidney disease, or unspecified chronic kidney disease (principal); I50.33 Acute on chronic diastolic (congestive) heart failure; I25.119 Atherosclerotic heart disease of native coronary artery with unspecified angina pectoris; E11.22 Type 2 diabetes mellitus with diabetic chronic kidney disease; N18.30 Chronic kidney disease, stage 3 unspecified; E11.51 Type 2 diabetes mellitus with diabetic peripheral angiopathy without gangrene; E78.5 Hyperlipidemia, unspecified; J43.9 Emphysema, unspecified; Z90.710 Acquired absence of both cervix and uterus; Z95.1 Presence of aortocoronary bypass graft; Z95.5 Presence of coronary angioplasty implant and graft
CPT/HCPCS: 36415; 71045; 80048; 80053; 80061; 81001; 82550; 83735; 83874; 83880; 84484; 85025; 85027; 90714; 93005; 93306; 93356; G0378; J1650; J1940; J3490

== ENCOUNTER → 2023-03-17 | Outpatient (CLI) | payer OTHER, MEDICARE ==
[~2023-03-17] MED LIST changes: +ACET-2743 PO; -ACET-66 PO; -AEC81 PO; +ASPI-1197 PO; -CEPH500B PO; +DICL50TA9 PO; -FURO20TA4 PO; -METO25TA6 PO; -NAPR-1196 PO; +NITR0.4T50 SL; -OMEP-272 PO; -PRAV80TA21 PO; +PREG100C55 PO; -PREG50CA63 PO; +RANO500T6 PO; +ROSU20TA31 PO; -TRAM1TAB2 PO
[2023-03-17 12:34] LABS: CREATININE 1.3 mg/dL (0.5-1.5); MAGNESIUM 1.8 mg/dL (1.80-2.40); POTASSIUM 5.3 mmol/L (3.5-5.1)
== END | disposition home or self-care (01) ==
LOC: LAB 09:56
PROVIDERS: ATTEND Internal Medicine Cardiovascular Disease
DX: I10 Essential (primary) hypertension (principal); E78.5 Hyperlipidemia, unspecified; I73.9 Peripheral vascular disease, unspecified
CPT/HCPCS: 36415; 80048; 83735; 83880

== ENCOUNTER → 2023-03-23 | Outpatient (CLI) | payer OTHER, MEDICARE ==
[~2023-03-23] MED LIST changes: +DiphenhydrAMINE HCL 50 MG/ML VIAL ONE; +IOHEXOL 350 MG/ML 100ML INFUS..BTL IV ONE; +METOPROLOL TARTRATE 1 MG/ML 5ML VIAL IV ONE; +SOLU-MEDROL 125MG VIAL ONE
== END | disposition home or self-care (01) ==
LOC: RAH 07:45
PROVIDERS: ATTEND Internal Medicine Cardiovascular Disease
DX: I25.10 Atherosclerotic heart disease of native coronary artery without angina pectoris (principal); I10 Essential (primary) hypertension; I73.9 Peripheral vascular disease, unspecified; R91.8 Other nonspecific abnormal finding of lung field; J98.11 Atelectasis
CPT/HCPCS: 75574; J1200; J3490; J2930; Q9967

== ENCOUNTER 2023-04-05 15:04 | Observation (INO) | payer OTHER, MEDICARE ==
[~2023-04-05] VITALS: Ht 152.4 cm; Wt 60.8 kg
[~2023-04-05 15:04] MED LIST changes: -DiphenhydrAMINE HCL 50 MG/ML VIAL ONE; -IOHEXOL 350 MG/ML 100ML INFUS..BTL IV ONE; -METOPROLOL TARTRATE 1 MG/ML 5ML VIAL IV ONE; -ROSU20TA31 PO; +ROSU20TA73 PO; -SOLU-MEDROL 125MG VIAL ONE
[2023-04-05] MEDS ORDERED: ASPIRIN 81MG CHEW TAB PO ONE (15:30)
[2023-04-05 15:42] LABS: BASOPHILS % (AUTO) 0.4 % (0.0-5.0); EOSINOPHILS % (AUTO) 0.9 % (0.0-8.0); HEMATOCRIT 36.4 % (36-48); LYMPHOCYTES % (AUTO) 12.3 % (21.0-51.0); MEAN CORPUSCULAR HEMOGLOBIN 31.3 pg (27.0-33.0); MEAN CORPUSCULAR HGB CONC 30.2 g/dL (32.0-36.0); MEAN CORPUSCULAR VOLUME 103.4 fL (79-99); MONOCYTES % (AUTO) 6.4 % (3.0-13.0); NEUTROPHILS % (AUTO) 79.4 % (40.0-77.0); PLATELET COUNT (AUTO) 271 K/uL (130-400); RED BLOOD CELL COUNT(AUTO) 3.52 MIL/uL (4.00-5.50); RED CELL DISTRIBUTION WIDTH 13.3 % (11.0-15.5); WHITE BLOOD COUNT (AUTO) 16.2 K/uL (4.8-10.8)
[2023-04-05 16:42] LABS: ALBUMIN 3.3 g/dL (3.5-5.0); CREATININE 1.2 mg/dL (0.5-1.5); TOTAL PROTEIN, SERUM 6.8 g/dL (6.0-8.3)
[2023-04-05 16:48] LABS: POTASSIUM 6.6 mmol/L (3.5-5.1)
[2023-04-05] MEDS ORDERED: INSULIN HUMULIN R 100 UNIT/ML 3ML IV ONE (17:00)
[2023-04-05] MEDS ORDERED: SODIUM BICARB 8.4% 50ML SYRINGE IVP ONE (17:00)
[2023-04-05] MEDS ORDERED: CALCIUM GLUC 1GM 1 GM in 0.9%NACL 100ML 100 ML IV ONE (17:00)
[2023-04-05] MEDS ORDERED: DEXTROSE 50%-WATER 25 GM/50 ML VIAL IV ONE (17:00)
[2023-04-05] MEDS: KAYEXALATE 15GM/60ML PO SCH ×2 (17:53→21:33)
[2023-04-05] MEDS ORDERED: ALBUTEROL 0.083% 2.5 MG/3 ML INH IH PRN (18:30)
[2023-04-05] MEDS ORDERED: CLONIDINE HCL 0.1 MG TABLET PO PRN (18:30)
[2023-04-05] MEDS ORDERED: HYDRALAZINE 20MG/ML VIAL IV PRN (18:30)
[2023-04-05] MEDS ORDERED: ACETAMINOPHEN 325 MG TAB PO PRN (18:30)
[2023-04-05] MEDS ORDERED: LACTULOSE 20 GM/30 ML UDCUP PO PRN (18:30)
[2023-04-05 18:42] LABS: INR 0.93 (0.85-1.15); PROTHROMBIN TIME 9.9 SEC (9.6-11.6)
[2023-04-05 18:44] LABS: PARTIAL THROMBOPLASTIN TIME 21.7 SEC (26.3-35.5)
[2023-04-05 18:50] LABS: HEMOGLOBIN A1C 5.5 % (4.0-6.0)
[2023-04-05 18:55] LABS: THYROID STIMULATING HORMONE 1.62 uIU/mL (0.36-3.74)
[2023-04-05 19:03] LABS: APPEARANCE,URINE CLEAR (CLEAR); BILIRUBIN,URINE NEGATIVE (NEGATIVE); COLOR,URINE YELLOW (YELLOW); GLUCOSE, URINE (UA) NEGATIVE (NEGATIVE); KETONES,URINE NEGATIVE (NEGATIVE); LEUKOCYTE ESTERASE ,URINE NEGATIVE Leu/uL (NEGATIVE); NITRATE,URINE NEGATIVE (NEGATIVE); OCCULT BLOOD,URINE NEGATIVE (NEGATIVE); PROTEIN,URINE NEGATIVE (NEGATIVE); UROBILINOGEN,URINE 0.2 mg/dL (0.2-1.0)
[2023-04-05 19:15] LABS: BACTERIA,URINE RARE /HPF (None Seen); MUCUS,URINE RARE LPF (None Seen); OTHER CASTS, URINE 1 /LPF (None Seen); RBC,URINE 0-1 /HPF (0-1); SQUAMOUS EPITHELIAL CELL,UR RARE /HPF (0-2)
[2023-04-05] MEDS ORDERED: KAYEXALATE 15GM/60ML ONE (21:09)
[2023-04-05] MEDS: DOCUSATE SODIUM 100 MG CAP PO SCH (21:33)
[2023-04-05] MEDS: 0.9%NACL 1000ML 1,000 ML IV SCH (21:33)
[2023-04-05 22:22] LABS: CREATININE 1.2 mg/dL (0.5-1.5); POTASSIUM 4.6 mmol/L (3.5-5.1)
[2023-04-06] MEDS: CEFTRIAXONE 2GM VIAL IVPB SCH (03:48)
[2023-04-06] MEDS: AZITHROMYCIN 500MG+NS 250ML IVPB SCH (03:48)
[2023-04-06 08:21] LABS: CREATININE 1.1 mg/dL (0.5-1.5); MAGNESIUM 1.8 mg/dL (1.80-2.40); PHOSPHORUS 4.2 mg/dL (2.5-4.9); POTASSIUM 5.6 mmol/L (3.5-5.1)
[2023-04-06 08:22] LABS: BASOPHILS % (AUTO) 0.5 % (0.0-5.0); EOSINOPHILS % (AUTO) 0.9 % (0.0-8.0); HEMATOCRIT 37.4 % (36-48); LYMPHOCYTES % (AUTO) 12.2 % (21.0-51.0); MEAN CORPUSCULAR HEMOGLOBIN 31.1 pg (27.0-33.0); MEAN CORPUSCULAR HGB CONC 29.4 g/dL (32.0-36.0); MEAN CORPUSCULAR VOLUME 105.6 fL (79-99); MONOCYTES % (AUTO) 6.2 % (3.0-13.0); NEUTROPHILS % (AUTO) 79.6 % (40.0-77.0); PLATELET COUNT (AUTO) 226 K/uL (130-400); RED BLOOD CELL COUNT(AUTO) 3.54 MIL/uL (4.00-5.50); RED CELL DISTRIBUTION WIDTH 13.2 % (11.0-15.5); WHITE BLOOD COUNT (AUTO) 12.9 K/uL (4.8-10.8)
[2023-04-06] MEDS: 0.9%NACL 1000ML 1,000 ML IV SCH ×2 (08:56→21:35)
[2023-04-06] MEDS ORDERED: ISOSORBIDE MONO 30MG SR TAB PO SCH (09:00)
[2023-04-06] MEDS ORDERED: HYDROCODONE/ACETAMINOPHEN 5/325 MG TAB PO PRN ×2 (09:00)
[2023-04-06] MEDS: PREGABALIN 100 MG CAPSULE PO SCH ×2 (09:00→21:00)
[2023-04-06] MEDS ORDERED: Rosuvastatin Calcium 20 MG PO SCH (09:00)
[2023-04-06] MEDS ORDERED: KAYEXALATE 15GM/60ML PO SCH (09:00)
[2023-04-06] MEDS: FUROSEMIDE 40MG VIAL IV SCH ×2 (09:43→21:34)
[2023-04-06] MEDS: ENOXAPARIN SODIUM 30 MG/0.3 ML SQ SCH (09:44)
[2023-04-06] MEDS: RANOLAZINE 500 MG TAB.SR.12H PO SCH ×2 (09:45→21:33)
[2023-04-06] MEDS: GABAPENTIN 100 MG CAPSULE PO SCH ×2 (09:45→21:34)
[2023-04-06] MEDS: DOCUSATE SODIUM 100 MG CAP PO SCH ×2 (09:45→21:33)
[2023-04-06] MEDS: ASPIRIN 81MG CHEW TAB PO SCH (09:46)
[2023-04-06] MEDS: PANTOPRAZOLE 40 MG TAB DR PO SCH (09:46)
[2023-04-06] MEDS ORDERED: 0.9% NACL 500ML IV.SOLN 500 ML IV SCH (14:00)
[2023-04-06 23:40] VITALS: BP 153/76
[2023-04-07] MEDS: CEFTRIAXONE 2GM VIAL IVPB SCH (00:35)
[2023-04-07] MEDS: AZITHROMYCIN 500MG+NS 250ML IVPB SCH (02:03)
[2023-04-07 04:00] VITALS: BP 128/47
[2023-04-07 08:00] VITALS: BP 122/48
[2023-04-07] MEDS: RANOLAZINE 500 MG TAB.SR.12H PO SCH ×2 (09:02→20:43)
[2023-04-07] MEDS: FUROSEMIDE 40MG VIAL IV SCH ×2 (09:02→20:43)
[2023-04-07] MEDS: ASPIRIN 81MG CHEW TAB PO SCH (09:02)
[2023-04-07] MEDS: GABAPENTIN 100 MG CAPSULE PO SCH ×2 (09:03→20:44)
[2023-04-07] MEDS: PREGABALIN 100 MG CAPSULE PO SCH ×2 (09:03→20:43)
[2023-04-07] MEDS: PANTOPRAZOLE 40 MG TAB DR PO SCH (09:03)
[2023-04-07] MEDS: ENOXAPARIN SODIUM 30 MG/0.3 ML SQ SCH (09:03)
[2023-04-07] MEDS: DOCUSATE SODIUM 100 MG CAP PO SCH ×2 (09:03→20:43)
[2023-04-07 11:00] VITALS: BP 110/57
[2023-04-07 15:55] VITALS: BP 96/40
[2023-04-07 20:55] VITALS: BP 158/58
[2023-04-08 00:43] VITALS: BP 111/49
[2023-04-08] MEDS: CEFTRIAXONE 2GM VIAL IVPB SCH (02:13)
[2023-04-08] MEDS: AZITHROMYCIN 500MG+NS 250ML IVPB SCH (03:10)
[2023-04-08 04:43] VITALS: BP 90/46
[2023-04-08 05:43] LABS: BASOPHILS % (AUTO) 0.6 % (0.0-5.0); EOSINOPHILS % (AUTO) 4.5 % (0.0-8.0); HEMATOCRIT 31.9 % (36-48); LYMPHOCYTES % (AUTO) 21.8 % (21.0-51.0); MEAN CORPUSCULAR HEMOGLOBIN 31.6 pg (27.0-33.0); MEAN CORPUSCULAR VOLUME 101.9 fL (79-99); MONOCYTES % (AUTO) 10.5 % (3.0-13.0); NEUTROPHILS % (AUTO) 61.9 % (40.0-77.0); PLATELET COUNT (AUTO) 199 K/uL (130-400); RED BLOOD CELL COUNT(AUTO) 3.13 MIL/uL (4.00-5.50); RED CELL DISTRIBUTION WIDTH 13.3 % (11.0-15.5); WHITE BLOOD COUNT (AUTO) 6.7 K/uL (4.8-10.8)
[2023-04-08 06:07] LABS: ALBUMIN 2.4 g/dL (3.5-5.0); CREATININE 1.5 mg/dL (0.5-1.5); MAGNESIUM 1.2 mg/dL (1.80-2.40); POTASSIUM 3.3 mmol/L (3.5-5.1); TOTAL PROTEIN, SERUM 5.6 g/dL (6.0-8.3)
[2023-04-08 08:00] VITALS: BP 107/48
[2023-04-08] MEDS ORDERED: KCL 20 MEQ ERTAB PO SCH (08:30)
[2023-04-08] MEDS ORDERED: MAGNESIUM 2GM PREMIX 50ML 50 ML IV SCH (08:30)
[2023-04-08] MEDS: PANTOPRAZOLE 40 MG TAB DR PO SCH (08:37)
[2023-04-08] MEDS: DOCUSATE SODIUM 100 MG CAP PO SCH (08:37)
[2023-04-08] MEDS: RANOLAZINE 500 MG TAB.SR.12H PO SCH (08:37)
[2023-04-08] MEDS: PREGABALIN 100 MG CAPSULE PO SCH (08:37)
[2023-04-08] MEDS: ASPIRIN 81MG CHEW TAB PO SCH (08:37)
[2023-04-08] MEDS: ENOXAPARIN SODIUM 30 MG/0.3 ML SQ SCH (08:38)
[2023-04-08] MEDS: FUROSEMIDE 40MG VIAL IV SCH (08:38)
[2023-04-08] MEDS: GABAPENTIN 100 MG CAPSULE PO SCH (08:38)
[2023-04-08 12:00] VITALS: BP 123/70
[2023-04-08 16:00] VITALS: BP 104/50
[2023-04-08] MEDS ORDERED: PANT40TA PO (17:38)
[2023-04-08] MEDS ORDERED: GABA100C PO (17:38)
[2023-04-08] MEDS ORDERED: FURO20TA4 PO (17:38)
[2023-04-08] MEDS ORDERED: AZIT500T4 PO (17:39)
== END 2023-04-08 19:10 | disposition home or self-care (01) ==
LOC: EDH 15:04 → EDHIP 18:16 → 4DH 04-06 23:35
PROVIDERS: ADMIT Internal Medicine Critical Care Medicine; ATTEND Internal Medicine Critical Care Medicine
DX: A41.9 Sepsis, unspecified organism (principal); Z20.822 Contact with and (suspected) exposure to COVID-19; J18.9 Pneumonia, unspecified organism; R07.89 Other chest pain; E87.5 Hyperkalemia; E75.6 Lipid storage disorder, unspecified; R06.00 Dyspnea, unspecified; I25.10 Atherosclerotic heart disease of native coronary artery without angina pectoris; J43.9 Emphysema, unspecified; I11.0 Hypertensive heart disease with heart failure; I50.9 Heart failure, unspecified; I25.2 Old myocardial infarction; R07.0 Pain in throat; I25.119 Atherosclerotic heart disease of native coronary artery with unspecified angina pectoris; R65.20 Severe sepsis without septic shock; E87.8 Other disorders of electrolyte and fluid balance, not elsewhere classified; E11.51 Type 2 diabetes mellitus with diabetic peripheral angiopathy without gangrene; E78.5 Hyperlipidemia, unspecified; G62.9 Polyneuropathy, unspecified; Z95.1 Presence of aortocoronary bypass graft; Z95.5 Presence of coronary angioplasty implant and graft; Z79.899 Other long term (current) drug therapy; Z98.890 Other specified postprocedural states; Z79.82 Long term (current) use of aspirin
CPT/HCPCS: 96365; 96366 ×5; 96375 ×2; 99285; 83036; 84443; 82550 ×3; 83874 ×3; 84484 ×5; 80061; 80053 ×2; 83880 ×2; 85025 ×3; 85378; 85610; 85730; 83970; 87449; 81001; 36415 ×3; 71045; 71250; 93970; 93005 ×2; 94664; 96376 ×3; 96372 ×3; 96361; 96367 ×2; 96368; 82150; 83735 ×2; 84100; 80048; 82948; 86738 ×2; 78582; 93306; 93356; 93925; 97161; 97116 ×2; 97039; G0378 ×71; J7030; J7070; J0610; J1815; J0696 ×4; J1650 ×3; J0456 ×3; J1940 ×5; A9540; A9558; J3475

== ENCOUNTER → 2023-05-03 | Outpatient (CLI) | payer OTHER, MEDICARE ==
[~2023-05-03] MED LIST changes: +AZIT500T4 PO; +FURO20TA4 PO; +GABA100C PO; +PANT40TA PO
== END | disposition home or self-care (01) ==
LOC: SHCH 10:00
PROVIDERS: ATTEND Internal Medicine Cardiovascular Disease
DX: I65.23 Occlusion and stenosis of bilateral carotid arteries (principal)
CPT/HCPCS: 93880

== ENCOUNTER → 2023-09-29 | Outpatient (CLI) | payer MEDICARE, OTHER ==
[~2023-09-29] MED LIST changes: -PREG100C55 PO; +PREG100C56 PO
[2023-09-29 16:24] LABS: BASOPHILS # (AUTO) 0.06 K/uL (0.00-0.20); BASOPHILS % (AUTO) 0.9 % (0.0-5.0); EOSINOPHILS # (AUTO) 0.12 K/uL (0.00-0.70); EOSINOPHILS % (AUTO) 1.8 % (0.0-8.0); HEMATOCRIT 41.3 % (36-48); IMMATURE GRANULOCYTE ABSOLUTE 0.04 K/uL (0-1); LYMPHOCYTES # (AUTO) 1.8 K/uL (1.0-4.8); LYMPHOCYTES % (AUTO) 26.2 % (21.0-51.0); MEAN CORPUSCULAR HEMOGLOBIN 32.1 pg (27.0-33.0); MEAN CORPUSCULAR HGB CONC 30.5 g/dL (32.0-36.0); MEAN CORPUSCULAR VOLUME 105.1 fL (79-99); MONOCYTES # (AUTO) 0.8 K/uL (0.1-1.0); MONOCYTES % (AUTO) 11.7 % (3.0-13.0); NEUTROPHILS # (AUTO) 3.9 K/uL (1.8-7.7); NEUTROPHILS % (AUTO) 58.8 % (40.0-77.0); PLATELET COUNT (AUTO) 192 K/uL (130-400); RED BLOOD CELL COUNT(AUTO) 3.93 MIL/uL (4.00-5.50); RED CELL DISTRIBUTION WIDTH 12.6 % (11.0-15.5); WHITE BLOOD COUNT (AUTO) 6.7 K/uL (4.8-10.8)
[2023-09-29 16:52] LABS: ALBUMIN 3.4 g/dL (3.5-5.0); BILIRUBIN,TOTAL 0.3 mg/dL (0.2-1.0); CREATININE 1.1 mg/dL (0.5-1.5); POTASSIUM 4.3 mmol/L (3.5-5.1); TOTAL PROTEIN, SERUM 6.7 g/dL (6.0-8.3)
== END | disposition home or self-care (01) ==
LOC: LAB 11:42
PROVIDERS: ATTEND Internal Medicine Cardiovascular Disease
DX: I10 Essential (primary) hypertension (principal); E78.5 Hyperlipidemia, unspecified
CPT/HCPCS: 36415; 80053; 83735; 83880; 85025

== ENCOUNTER → 2024-01-07 | Outpatient (CLI) | payer OTHER, MEDICARE | LOC: SHCH 09:06 | PROVIDERS: ATTEND Internal Medicine Cardiovascular Disease | DX: I65.23 Occlusion and stenosis of bilateral carotid arteries (principal) | CPT/HCPCS: 93880 ==

== ENCOUNTER → 2024-09-04 | Outpatient (CLI) | payer OTHER, MEDICARE ==
[~2024-09-04] MED LIST changes: -ACET-2743 PO; +AEC81 PO; -ASPI-1197 PO; -AZIT500T4 PO; +CLOP75TA32 PO; -DICL50TA9 PO; +ERGO500093 PO; -FURO20TA4 PO; -GABA100C PO; +METO2.5T2 PO; -NITR0.4T50 SL; -PANT40TA PO; -PREG100C56 PO; -ROSU20TA73 PO
[2024-09-04 13:10] LABS: ALBUMIN 3.2 g/dL (3.5-5.0); BILIRUBIN,TOTAL 0.3 mg/dL (0.2-1.0); POTASSIUM 4.8 mmol/L (3.5-5.1); TOTAL PROTEIN, SERUM 6.7 g/dL (6.0-8.3)
== END | disposition home or self-care (01) ==
LOC: LAB 10:05
PROVIDERS: ATTEND Nurse Practitioner Acute Care
DX: I10 Essential (primary) hypertension (principal); E78.5 Hyperlipidemia, unspecified
CPT/HCPCS: 36415; 80053; 80061

== ENCOUNTER 2025-05-06 08:44 | Emergency (ER) | payer OTHER, MEDICARE ==
[~2025-05-06] VITALS: Ht 154.9 cm; Wt 53.5 kg
[~2025-05-06 08:44] MED LIST changes: +ATOR-2 PO; -ERGO500093 PO; +FERS325 PO; +HYDR-3421 PO; -ISOS30TA92 PO; -RANO500T6 PO
--- NOTE | 2025-05-06 09:55 | HMCIMG ---
EXAM: CR right Wrist, 3 View. CLINICAL HISTORY: fall COMPARISON: None provided. FINDINGS: Mildly displaced, comminuted intra-articular fracture of the distal radius. Dorsal angulation of the distal fracture fragment. Mildly displaced fracture of the ulnar styloid process superimposed upon an old, ununited fracture. Joint spaces remain anatomically aligned. Moderate thumb basal joint osteoarthritis. IMPRESSION: 1. Mildly displaced, comminuted intra-articular distal radius fracture with dorsal angulation 2. Mildly displaced ulnar styloid fracture superimposed on old ununited fracture /[place]
--- NOTE | 2025-05-06 09:55 | HMCIMG ---
EXAM: Right knee radiograph 3 view HISTORY: Fall COMPARISON: None TECHNIQUE: AP, lateral and oblique view of the knee FINDINGS: Narrowing of the knee joint space. No fracture or dislocation. Vascular calcifications. Soft tissue swelling, particularly the prepatellar space IMPRESSION: Findings possibly representing prepatellar bursitis /[place]
[2025-05-06] MEDS: LIDOCAINE HCL 1% 20 ML VIAL INJ STA (10:00)
[2025-05-06] MEDS: OCTYL 2-CYANOACRYLATE 1 EACH TP STA (10:30)
--- NOTE | 2025-05-06 10:40 | HMCIMG ---
EXAM: CR right Wrist, 2 View. CLINICAL HISTORY: FALL COMPARISON: Radiographs from earlier today. FINDINGS: Interval reduction of the distal radial and ulnar fractures with fracture fragments and improved anatomic alignment. Wrist joint effusion, and soft tissue swelling about the wrist. IMPRESSION: 1. Status post reduction of distal radius and ulnar fractures with improved anatomic alignment. /[place]
[2025-05-06] MEDS ORDERED: ACET-66 PO (10:57)
--- NOTE | 2025-05-06 10:57 | ERN ---
General Chief Complaint: Mechanical Fall Stated Complaint: FALL Time Seen by MD: 08:45 Source: patient History of Present Illness Initial Comments PATIENT IS A 85-YEAR-OLD FEMALE COMING IN COMPLAINING OF RIGHT WRIST RIGHT KNEE PAIN. PER PATIENT SHE WAS ON HER BED TRIED TO GET OUT FELL OFF LANDING ON HER RIGHT WRIST. SHE DID NOT HIT HER HEAD SHE STATES SHE DID NOT LOSE CONSCIOUSNESS. Allergies: Coded Allergies: Iodine and Iodide Containing Produc (Verified Allergy, Unknown, 05/28/16) albuterol (Unverified Allergy, Unknown, 07/17/21) codeine (Verified Allergy, Unknown, 05/28/16) Home Meds Reported Medications Hydroxyzine HCl (Hydroxyzine HCl) 25 Mg Tablet, 25 TAB PO BID for itching of the scalp for 30 Days, #60 TAB 0 Refills 10/23/24 Atorvastatin Calcium (Atorvastatin Calcium) 80 Mg Tablet, 1 TAB PO DAILY for 30 Days, #30 TAB 0 Refills 10/23/24 Ferrous Sulfate (Ferrous Sulfate) 325 Mg (65 Mg Iron) Ectab, 1 TAB PO DAILY for 30 Days, #30 TAB 0 Refills 10/23/24 Clopidogrel Bisulfate (Clopidogrel) 75 Mg Tablet, 75 MG PO DAILY, TAB 07/17/24 Metolazone (Metolazone) 2.5 Mg Tablet, 2.5 MG PO DAILY, TAB 07/17/24 Aspirin (ASPIRIN 81 MG ECTAB) 81 Mg Ectab, 81 MG PO DAILY, TAB.EC 07/17/24 Past Medical History Past Medical History: Diabetes-Type II, High Cholesterol, Heart Disease, Hypertension Medical History Other: EMPHESYMA Past Surgical History: Unknown Surgical History Other: OVARIAN CYST Social History Social History: Negative, Lives with family Female( History) History: Not Applicable ROS Dictation CONSTITUTIONAL: NO CHILLS, NO FEVER, NO WEAKNESS, NO DIAPHORESIS, NO MALAISE. HEAD/FACE: NO SIGNS OF TRAUMA. EENT: NO EYE PAIN, NO BLURRED VISION, NO TEARING, NO DOUBLE VISION, NO EAR PAIN, NO EAR DISCHARGE, NO NOSE PAIN, NO NASAL CONGESTION, NO THROAT PAIN, NO THROAT SWELLING, NO MOUTH PAIN. RESPIRATORY: NO COUGH, NO ORTHOPNEA, NO SOB, NO STRIDOR, NO WHEEZING. CARDIOVASCULAR: NO CHEST PAIN, NO EDEMA, NO PALPITATIONS, NO SYNCOPE. GASTROINTESTINAL/ABDOMINAL: NO ABDOMINAL PAIN, NO CONSTIPATION, NO DIARRHEA, NO NAUSEA, NO VOMITING. GENITOURINARY: NO ABNORMAL DISCHARGE, NO DYSURIA, NO FREQUENT URINATION, NO HEMATURIA. NO COMPLAINTS OF PAIN IN THE GENITALS. MUSCULOSKELETAL: NO BACK PAIN, NO GOUT, JOINT PAIN, JOINT SWELLING, MUSCLE PAIN, NO MUSCLE STIFFNESS, NO NECK PAIN. INTEGUMENTARY: NO CHANGE IN COLOR, NO CHANGE IN HAIR/NAILS, NO DRYNESS, NO LESION, NO LUMPS, NO RASH. NEUROLOGICAL/PSYCH: NO ANXIETY, NOT DEPRESSED, NO EMOTIONAL PROBLEM, NO HEADACHE, NO NUMBNESS, NO PRE-EXISTING DEFICIT, NO HISTORY OF SEIZURES, NO TREMORS, NO WEAKNESS. HEMATOLOGIC/LYMPHATIC: NOT ANEMIC, NO HISTORY OF BLOOD CLOTS, NO APPARENT BLEEDING, NO BRUISING, GLANDS NOT SWOLLEN. ALL SYSTEMS NEGATIVE, EXCEPT NOTED. Physical Exam Physical Exam Dictation VITAL SIGNS: REVIEWED. GENERAL APPEARANCE: ALERT, ORIENTED X3, NO ACUTE DISTRESS, OBESE. HEAD AND FACE: NON-TRAUMATIC. EYES: PERRL, PINK CONJUNCTIVAS, EYELID NO TRAUMA, ANTERIOR CHAMBER CLEAR. EARS: PINNAS INTACT AND NO SIGNS OF TRAUMA OR ERYTHEMA. EAR CANALS CLEAR AND NO DISCHARGE. TMS NO ERYTHEMA. NOSE: NO DISCHARGE, NO BLEEDING. OROPHARYNX: MOUTH NORMAL, TEETH NO CARIES, TONGUE PINK. PHARYNX CLEAR, NO ERYTHEMA. TONSILS NO EXUDATES, NO ABSCESSES NOTED. MUCOUS MEMBRANE MOIST. NECK: SUPPLE, NON-TENDER, NO THYROMEGALY, NO MASSES, NO JVD, NO BRUITS. BREAST: DEFERRED. CHEST: NO TENDERNESS, NO CREPITUS, NO PARADOXICAL MOVEMENT, NO RETRACTIONS. LUNGS: CLEAR, WELL-VENTILATED, SYMMETRIC, NO RALES, NO WHEEZING, NO RHONCHI, NO STRIDOR, GOOD BREATH SOUNDS BILATERALLY. HEART: REGULAR RATE, REGULAR RHYTHM, NO MURMUR, NO GALLOPS. VASCULAR: NO PERIPHERAL EDEMA. ABDOMEN: SOFT, POSITIVE BOWEL SOUNDS, NONDISTENDED, NO GUARDING, NONTENDER, NO REBOUND, NO MASSES NO HEPATOMEGALY, NO SPLENOMEGALY, NO AGUAYO'S SIGN, NO HERNIAS. RECTAL: DEFERRED. GENITAL: DEFERRED. NEUROLOGICAL: NORMAL SPEECH, GROSS MOTOR FUNCTION INTACT, GROSS SENSORY FUNCTION INTACT. MUSCULOSKELETAL: NECK NONTENDER, FULL RANGE OF MOTION, BACK NONTENDER, FULL RANGE OF MOTION. EXTREMITIES: NONTENDER, FULL RANGE OF MOTION. RIGHT WRIST TENDERNESS FALLING, KNEE SWELLING. SKIN: COLOR PINK, DRY, NO TURGOR, NO RASH, NO LACERATIONS, NO ABRASIONS, NO CONTUSIONS. LYMPHATICS: DEFERRED. Results Laboratory and Microbiology Labs Reviewed?: Yes EKG/XRAY/US/CT/MRI X-RAY Comment [address] [place] [id number] IMAGING REPORT Signed PATIENT: STACIE PEDROZA MR#: [id number] : 1940 SEX: F AGE: 85 LOCATION: ED ORDER STATUS: REG ER REPORT#: [id number] SERVICE REASON: fall ORDERING PHYSICIAN: ERMIAS GILBERT MD PROCEDURE: KNEE 3V RT - KNEE 3VWS RT EXAM: Right knee radiograph 3 view HISTORY: Fall COMPARISON: None TECHNIQUE: AP, lateral and oblique view of the knee FINDINGS: Narrowing of the knee joint space. No fracture or dislocation. Vascular calcifications. Soft tissue swelling, particularly the prepatellar space IMPRESSION: Findings possibly representing prepatellar bursitis /[place] DICTATED BY: MALLORY HUSSEIN MD DATE: 05/06/251052 ELECTRONICALLY SIGNED BY: MALLORY HUSSEIN MD DATE: 05/06/25 1053 IMAGING REPORT Signed PATIENT: STACIE PEDROZA MR#: [id number] : 1940 SEX: F AGE: 85 LOCATION: ED ORDER 7 STATUS: REG ER [facility] REPORT#: [id number] SERVICE REASON: fall ORDERING PHYSICIAN: ERMIAS GILBERT MD PROCEDURE: WRST 3V RT - WRIST COMP 3+VWS RT EXAM: CR right Wrist, 3 View. CLINICAL HISTORY: fall COMPARISON: None provided. FINDINGS: Mildly displaced, comminuted intra-articular fracture of the distal radius. Dorsal angulation of the distal fracture fragment. Mildly displaced fracture of the ulnar styloid process superimposed upon an old, ununited fracture. Joint spaces remain anatomically aligned. Moderate thumb basal joint osteoarthritis. IMPRESSION: 1. Mildly displaced, comminuted intra-articular distal radius fracture with dorsal angulation 2. Mildly displaced ulnar styloid fracture superimposed on old ununited fracture /[place] DICTATED BY: MARLA JAMESON Jr., MD DATE: 05/06/25 105 ELECTRONICALLY SIGNED BY: MRALA JAMESON Jr., MD DATE: 05/06/25 105 [place] [address] [place] [id number] IMAGING REPORT Signed PATIENT: STACIE PEDROZA MR#: [id number] : 1940 SEX: F AGE: 85 LOCATION: EDH ORDER 1006 STATUS: [facility] ER REPORT#: [id number] SERVICE 1005 REASON: FALL ORDERING PHYSICIAN: ERMIAS GILBERT MD PROCEDURE: WRST 2V RT - WRIST 2VWS RT EXAM: CR right Wrist, 2 View. CLINICAL HISTORY: FALL COMPARISON: Radiographs from earlier today. FINDINGS: Interval reduction of the distal radial and ulnar fractures with fracture fragments and improved anatomic alignment. Wrist joint effusion, and soft tissue swelling about the wrist. IMPRESSION: 1. Status post reduction of distal radius and ulnar fractures with improved anatomic alignment. /[place] DICTATED BY: MARLA JAMESON Jr., MD DATE: 05/06/25 1140 ELECTRONICALLY SIGNED BY: MARLA JAMESON Jr., MD DATE: 05/06/25 114 [facility] MDM: DIFFERENTIAL DIAGNOSIS: RIGHT WRIST FRACTURE, FALL, KNEE CONTUSION, RATIONALE: TESTS CONSIDERED AND ORDERED SECONDARY TO SHARED DECISION MAKING INCLUDE: PREVIOUS OUTSIDE RECORDS REVIEWED: OLD ER VISITS. RISK OF COMPLICATION AND/OR MORBIDITY OR MORTALITY OF PATIENT MANAGEMENT: NONE MEDICATIONS-PER MEDICATION RECONCILIATION NEED FOR HOSPITALIZATION: PATIENT DOES NOT MEET CRITERIA FOR HOSPITALIZATION. NEED FOR EMERGENCY MAJOR/MINOR SURGERY: NO PATIENT IS A AN 85-YEAR-OLD FEMALE COMING IN COMPLAINING OF RIGHT WRIST AND RIGHT KNEE PAIN. PER PATIENT SHE WAS GETTING OUT OF THE BED SLIPPED AND LANDED ON HER RIGHT ARM OUTSTRETCHED. X-RAY DISCLOSE A RIGHT HAND RADIAL FRACTURE. INTRA-ARTICULAR BLOCK WAS PERFORMED USING LIDOCAINE. ONCE ANESTHESIA WAS ACHIE KENNEDY TRACTION AND COUNTER TRACTION WAS PERFORMED ALIGNMENT IMPROVED. SUGAR-TONG SPLINT WAS PLACED WITH SLING. PATIENT WILL BE DISCHARGED IN STABLE CONDITION. ED Course Orders Procedure Category Date Status Time Knee 3vws Rt RAD 05/06/25 Resulted 08:57 Wrist Comp 3+Vws Rt RAD 05/06/25 Resulted 08:57 Lidocaine Hcl 1% 20ml PHA 05/06/25 Complete Vial (Lidocaine Hc 09:49 Wrist 2vws Rt RAD 05/06/25 Resulted 10:05 Wrist 2vws Rt RAD 05/06/25 Taken 10:22 Dermabond (Dermabond) PHA 05/06/25 Complete 10:23 Current Medications Medications (Trade) Dose Ordered Sig/Teresa Route PRN Reason Start Time Stop Time Status Last Admin Dose Admin Lidocaine HCl (Lidocaine HCl 1% 20ml Vial) 20 ml ONCE STAT INJ 05/06/25 09:49 05/06/25 09:51 DC 05/06/25 10:00 Octyl Cyanoacrylate (Dermabond) 1 each ONCE STAT TP 05/06/25 10:23 05/06/25 10:24 DC 05/06/25 10:30 Vital Signs Date Time Temp Pulse Resp B/P (MAP) Pulse Ox O2 Delivery O2 Flow Rate FiO2 05/06/25 08:46 98.2 75 16 133/82 98 Nasal Cannula 2.0 Procedure Dictation RADIAL FRACTURE REDUCTION- USING LIDOCAINE 1% 8 ML WERE INFUSED INTO THE RIGHT WRIST RADIAL FRACTURE. GOOD ANESTHESIA ACHIEVED. ONCE THE ANESTHESIA WAS ACHIEVED TRACTION AND COUNTER TRACTION WERE PERFORMED ALIGNMENT IMPROVED ON REPEAT X-RAY. SPLINT WAS APPLIED LONG WITH A SLING PATIENT TOLERATED PROCEDURE WELL I DID EDUCATE HER ON PROPER FOLLOW UP WITH RAILROAD PURCHASING AGENT. DX & DISP Disposition: Discharge Departure Impression: Primary Impression: Fall Additional Impressions: Radial fracture, Knee contusion Condition: Stable Scripts Acetaminophen (Tylenol) 500 Mg Tab 1 TAB PO Q6HPRN PRN for pain or fever for 5 Days, #30 TAB 0 Refills Prov: ERMIAS GILBERT MD 05/06/25 Additional Instructions: FOLLOW-UP WITH PRIMARY CARE PROVIDER IN 1 TO 2 DAYS. TAKE MEDICATIONS DIRECTED HERE IN THE EMERGENCY ROOM. OKAY TO CONTINUE HOME MEDICATIONS UNLESS OTHERWISE DISCUSSED DURING YOUR VISIT IN THE EMERGENCY ROOM TODAY. RETURN TO YOUR NEAREST EMERGENCY ROOM IF SYMPTOMS WORSEN OR IF THERE IS NO IMPROVEMENT. CALL 911 IF YOU NEED IMMEDIATE ASSISTANCE. TAKE TYLENOL PCLJ-ARE-GLANNOI NEEDED AND IF NO CONTRAINDICATIONS ARE PRESENT. INCREASE ORAL HYDRATION. A WOUND CULTURE OR URINE CULTURE WAS ORDERED HERE IN THE EMERGENCY ROOM DEPARTMENT PLEASE FOLLOW-UP WITH PRIMARY CARE PROVIDER AND ADVISE THEM TO GET REPORTS FROM OUR FACILITY. IF YOU HAD ANY KEILY WRAP/SPLINTS THAT WERE APPLIED HERE, PLEASE DO NOT REMOVE THEM UNTIL YOU SEE YOUR PRIMARY CARE OR SPECIALTY. REFERRALS: Referrals: SAMARIA WILSON MD (PCP) Time of Disposition: 10:56 ERMIAS GILBERT MD May 06, 2025 10:57
[2025-05-06 11:14] VITALS: BP 109/67; PULSE 71; RESP 16; TEMP 98.3; O2SAT 92
--- NOTE | 2025-05-06 11:36 | HMCIMG ---
EXAM: CR right Wrist, 2 View. CLINICAL HISTORY: FALL COMPARISON: Radiographs from earlier today. FINDINGS: Interval reduction of the distal radial and ulnar fractures with fracture fragments and improved anatomic alignment. Wrist joint effusion, and soft tissue swelling about the wrist. IMPRESSION: 1. No significant interval change. /[place]
== END 2025-05-06 11:30 | disposition home or self-care (01) ==
LOC: EDH 08:44
DX: S52.511A Displaced fracture of right radial styloid process, initial encounter for closed fracture (principal); S52.611A Displaced fracture of right ulna styloid process, initial encounter for closed fracture; S80.01XA Contusion of right knee, initial encounter; E11.9 Type 2 diabetes mellitus without complications; E78.00 Pure hypercholesterolemia, unspecified; I10 Essential (primary) hypertension; Z79.02 Long term (current) use of antithrombotics/antiplatelets; Z79.82 Long term (current) use of aspirin; W06.XXXA Fall from bed, initial encounter; Z79.899 Other long term (current) drug therapy; Z88.5 Allergy status to narcotic agent; Z88.8 Allergy status to other drugs, medicaments and biological substances; W18.39XA Other fall on same level, initial encounter; Y93.89 Activity, other specified; Y92.89 Other specified places as the place of occurrence of the external cause; Y99.8 Other external cause status
CPT/HCPCS: 25605; 73100; 73110; 73562; 99284